=== PATIENT | male | born 1965 | race Caucasian/White ===

== ENCOUNTER → 2020-09-05 09:13 | Outpatient (CLI) | payer OTHER | END | disposition home or self-care (01) | LOC: D.HCCARDIO 09:13 | PROVIDERS: ATTEND Internal Medicine Cardiovascular Disease | DX: I25.10 Atherosclerotic heart disease of native coronary artery without angina pectoris (principal) ==

== ENCOUNTER 2020-10-06 06:59 | Day surgery (SDC) | payer OTHER ==
[~2020-10-06] VITALS: Ht 180.3 cm; Wt 132.8 kg
--- NOTE | ~2020-10-06 | HEMODYNAMI ---
PATIENT:DIANELYS GUALLPA MEDICAL RECORD: [id number] : 65 LOCATION:[facility] ADMISSION DATE: 10/06/20 Generatedon:110:43 Patient name: DIANELYS GUALLPA Patient #: [id number] SSN: DO B: 1965 Date of study: 10/06/2020 Page: Of Hemodynamic Procedure Report Patient Data Patient Demographics Procedure consent was obtained First Name: DIANELYS Gender: Male Last Name: RAMU : 1965 Patient #: [id number] Age: 55 year(s) Race: Unknown Additional ID: [id number] Contact details Address: [address] [place] [address] State: [place] City: [facility] Zip code: [address] Past Medical History Performed procedures and imaging results Date Procedure Procedure Results Comments Stress testing Positive->Intermediate with SPECT MPI risk Allergies Allergen Reaction Date Comments Reported Other allergy 10/06/2020 PCN,STATINS Admission Admission Data Admission Date: 10/06/2020 Admission Time: 6:59 Arrival Date: 10/06/2020 Arrival Time: 0:00 Height (in.): 70.87 BSA: 2.48 (m2) Height (cm.): 180 BMI: 41.05 (kg/m2) Weight (lbs.): 293.22 Weight (kg.): 133 Lab Results Lab Result Date: 10/06/2020 Lab Result Time: 0:00 Biochemistry Name Units Result Min Max BUN mg/dl 25 --(----)-* 7 18 Creatinine mg/dl 1 --(--*-)-- 0.6 1.3 eGFR ml/min 82.46043 *-(----)-- 90 120 NONAFRICAN CBC Name Units Result Min Max Hematocrit % 41 -*(----)-- 42 54 Hemoglobin g/dl 13.7 --(*---)-- 13.5 17.5 Procedure Procedure Types Cath Procedure Diagnostic Procedure [facility] w/Coronaries w/Grafts Sedation Charges Moderate Sedation 40-54 minutes Peripheral Cath Diagnostic Procedure Water Meter Reader Peripheral Procedures Abd/Extremity Aortagram Extremities Bilat Lower Extremity Procedure Description Procedure Date Procedure Date: 10/06/2020 Procedure Start Time: 10:02 Procedure End Time: 10:38 Procedure Staff Name Function Haroon Johns MD Performing Physician Blanca Cevallos RT Monitor Cony Peter RT Scrub Charito Stanley RN Nurse Darwin Moran RN Screen Printer Procedure Data Cath Procedure Fluoroscopy Diagnostic fluoroscopy Total fluoroscopy Time: 6.9 time: 6.9 min min Diagnostic fluoroscopy Total fluoroscopy dose: dose: 1866 mGy 1866 mGy Contrast Material Contrast Material Type Amount (ml) Isovue 300 212 Entry Location Entry Primary Successful Side Size Upsize Upsize Entry Closure Succes sful Closure Location (Fr) 1 (Fr) 2 (Fr) Remarks Device Remarks Femoral Right 5 Fr Exoseal artery Estimated blood loss: 10 ml Diagnostic catheters Device Type Used For End Catheter Placement MULTIPACK JL 4.0 5Fr Procedure catheter MULTIPACK 3DRC 5Fr Procedure catheter DIAGNOSTIC AR MOD 5Fr Procedure Catheter ([id number]) DIAGNOSTIC AR2 MOD 5 Fr Procedure catheter ([id number]) DIAGNOSTIC IM 5Fr Procedure catheter ([id number]) DIAGNOSTIC AR2 MOD 5 Fr Procedure catheter ([id number]) MULTIPACK Pigtail 5 Fr LV Angiography catheter Procedure Complications No complications Procedure Medications Medication Administration Route Dosage Oxygen etCO2 Nasal cannula 2 l/min Lidocaine 2% added to field 20 Heparin Flush Bag added to field 2 bags (1000units/500ml NS) 0.9% NaCl I.V. 100 ml/hr Versed I.V. 1 mg Versed I.V. 1 mg Fentanyl I.V. 50 mcg Fentanyl I.V. 50 mcg Versed I.V. 1 mg Fentanyl I.V. 50 mcg Versed I.V. 1 mg Fentanyl I.V. 50 mcg Versed I.V. 0.5 mg Versed I.V. 1 mg Versed I.V. 0.5 mg Hemodynamics Rest BSA: 2.48 (m2) HGB: 13.7 (g/dl) O2 Consumption: Estimated: 293.15 (ml/min) O2 Co nsumption indexed: Estimated:118.21 (ml/min/m) Heart Rate: 69 (bpm) Pressure Samples Time Site Value (mmHg) Purpose Heart Use Rate(bpm) 10:26 LV 124/2,19 Snapshot 73 10:27 AO 127/74(97) Pullback 68 10:27 LV 124/5,21 Pullback 68 Gradients Valve Time Site 1 Site 2 Mean SEP/DFP Peak To Heart Use (mmHg) (sec/min) Peak Rate (mmHg) (bpm) Aortic 10:27 LV AO 0 14 0 68 124/5,21 127/74(97) Calculations Valve P-P Mean Valve Index Valve Source Name Gradient Area Flow (cm2) Aortic 0 0 0 0 Snapshots Pre Cath Intra NCS Post Cath Vital Signs Time Heart Resp SPO2 etCO2 NIBP (mmHg) Rhythm Pain Sedation Rate (ipm) (%) (mmHg) Status Level (bpm) 9:28:47 67 20 97 0 124/77(98) NSR 0 (11) 10(A) , No pain 9:34:03 76 11 98 28.2 125/82(92) NSR 0 (11) 10(A) , No pain 9:38:21 70 15 100 23 115/77(97) NSR 0 (11) 10(A) , No pain 9:42:37 59 23 100 31.2 123/65(96) NSR 0 (11) 10(A) , No pain 9:46:47 73 22 98 17.8 117/75(96) NSR 0 (11) 10(A) , No pain 9:51:01 70 17 98 11.1 127/77(99) NSR 0 (11) 10(A) , No pain 9:55:14 77 13 98 28.2 128/83(96) NSR 0 (11) 9(A) , No pain 9:59:28 70 14 98 32 124/77(91) NSR 0 (11) 10(A) , No pain 10:03:38 74 13 95 0 122/84(105) NSR 0 (11) 10(A) , No pain 10:07:52 74 12 98 40.9 127/76(101) NSR 0 (11) 10(A) , No pain 10:12:02 77 18 95 29.7 122/89(105) NSR 0 (11) 10(A) , No pain 10:16:14 71 12 99 40.9 126/84(96) NSR 0 (11) 10(A) , No pain 10:20:30 77 17 99 37.9 132/81(100) NSR 0 (11) 10(A) , No pain 10:24:44 66 15 99 39.4 129/82(96) NSR 0 (11) 10(A) , No pain 10:29:00 74 16 100 38.7 123/82(94) NSR 0 (11) 10(A) , No pain 10:33:12 70 20 100 37.2 131/88(102) NSR 0 (11) 10(A) , No pain 10:37:26 76 21 100 29.7 135/89(109) NSR 0 (11) 10(A) , No pain Medications Time Medication Route Dose Verified Delivered Reason Notes Eff ectiveness by by 9:31:49 Oxygen etCO2 2 Haroon Buffie used for Nasal l/min Andreas Stanley RN procedure cannula 9:31:58 Lidocaine 2% added 20ml Haroon Haroon for local to vial nAdreas Johns MD anesthetic field 9:32:04 Heparin Flush added 2 Haroon Haroon used for Bag to bags Andreas Johns MD procedure (1000units/500ml field NS) 9:32:13 0.9% NaCl I.V. 100 Haroon Buffie Per ml/hr Andreas Stanley RN physician 9:45:30 Versed I.V. 1 mg Haroon Buffie for Andreas Stanley RN sedation 9:45:37 Fentanyl I.V. 50 Haroon Buffie for mcg Andreas Stanley RN sedation 9:48:31 Versed I.V. 1 mg Haroon Buffie for Andreas Stanley RN sedation 9:48:38 Fentanyl I.V. 50 Haroon Buffie for mcg Andreas Stanley RN sedation 9:54:36 Versed I.V. 1 mg Haroon Buffie for Andreas Stanley RN sedation 9:54:39 Fentanyl I.V. 50 Haroon Buffie for mcg Andreas Stanley RN sedation 9:59:03 Versed I.V. 1 mg Haroon Buffie for Andreas Stanley RN sedation 9:59:08 Fentanyl I.V. 50 Haroon Buffie for mcg Andreas Stanley RN sedation 10:04:39 Versed I.V. 0.5 Haroon Buffie for mg Andreas Stanley RN sedation 10:27:13 Versed I.V. 1 mg Haroon Granados for Andreas Moran sedation RN 10:30:27 Versed I.V. 0.5 Haroon Darwin for mg Andreas Moran sedation director trial Log Time Note 9:05:43 Informed consent obtained and on chart 9:06:20 Procedure Status Elective Heart Cath (OP), Peripheral. 9:06:23 Time tracking: Regular hours (M-F 7:00 - 5:00) 9:06:25 Plan of Care:Hemodynamics will remain stable., Cardiac rhythm will remain stable., Comfort level will be maintained., Respiratory function will remain adequate., Patient/ family verbilizes understanding of procedure., Procedure tolerated without complication., Recovers from procedure without complications.. 9:06:33 H&P Date Dictated: 09/28/2020 Within 30 days and on chart., H&P Addendum completed by physician on day of procedure. (MUST COMPLETE FOR ALL OUTPATIENTS). 9:06:58 Charito Stanley RN sent for patient. Start room use. 9:18:17 Patient allergic to Other allergyPCN,STATINS 9:18:44 Lab Result : BUN 25 mg/dl 9:18:44 Lab Result : Creatinine 1 mg/dl 9:18:44 Lab Result : eGFR NONAFRICAN 82.30748 ml/min 9:18:44 Lab Result : Hemoglobin 13.7 g/dl 9:18:44 Lab Result : Hematocrit 41 % 9:19:36 Patient Weight : 293.22 lbs 9:19:40 Patient Height : 70.87 inches 9:19:44 Arrival Date: 10/06/2020 12:00:00 AM 9:25:49 Lab results completed and on chart. 9:27:02 Stress Test: yes; abnormal ANTERIOR, APICAL, INFERIOR 9:27:18 Bilateral groins area was prepped with chlora-prep and draped in sterile fashion 9:27:19 Alarms reviewed by R. N. 9:27:20 Sharps counted by scrub and verified by R.N. 9:27:23 Physician paged 9:27:33 Patient received from Pre/Post Procedure Room to CCL 1 Alert and oriented. Tansferred to table in Supine position. 9:27:38 Warm blankets applied, and lake hugger turned on for patient comfort. 9:27:38 Correct patient and procedure confirmed by team. 9::39 ECG and BP/O2 sat monitors applied to patient. 9::39 Vital chart was started 9:27:41 Baseline sample Acquired. 9:27:46 Rhythm: sinus rhythm 9:27:47 Full Disclosure recording started 9:27:53 Family in patients room. 9:27:57 Patient NPO since Midnight. 9:28:01 Is the patient allergic to Iodine/contrast media? No. 9:28:03 Was the patient premedicated? Yes 9:28:05 Is patient on blood thinner?Yes 9:28:09 ACC The patient was administered the following blood thiners within the last 24 hours: ACCAspirin 9:28:15 Patient diabetic? No. 9:28:19 Snore? No 9:28:20 Sleep apnea? Yes 9:28:31 Dentures? No ? 9:29:43 Patient pain scale 0/10 ?. 9:29:50 IV patent on arrival in left forearm with 0.9% NaCl at [facility]. 9:31:49 Oxygen 2 l/min etCO2 Nasal cannula was administered by Charito Stanley RN; used for procedure; Verbal order read back and verified. 9:31:58 Lidocaine 2% 20ml vial added to field was administered by Haroon Johns MD; for local anesthetic; Verbal order read back and verified. 9:32:04 Heparin Flush Bag (1000units/500ml NS) 2 bags added to field was administered by Haroon Johns MD; used for procedure; Verbal order read back and verified. 9:32:13 0.9% NaCl 100 ml/hr I.V. was administered by Charito Stanley RN; Per physician; Verbal order read back and verified. 9:35:08 Baseline sample Acquired. 9:35:27 Use device set Femoral Dx 9:35:29 ACIST Syringe (62812) opened to sterile field. 9:35:29 Bag Decanter () opened to sterile field. 9:35:30 ACIST Hand Control (76347) opened to sterile field. 9:35:31 ACIST Manifold (32417) opened to sterile field. 9:35:31 Tegaderm 4 x 4 (1626W) opened to sterile field. 9:35:33 Medline Cath Pack ([id number]) opened to sterile field. 9:35:34 DIAGNOSTIC Multipack 5Fr catheter set ([id number]) opened to sterile field. 9:35:35 SHEATH 5FR [place] (TIL059) opened to sterile field. 9:35:37 EMERALD Guide Wire (854-086) opened to sterile field. 9:44:26 Physician responded to page. :44: Physician arrived 9:44:27 --------ALL STOP TIME OUT------ 9:44:28 Final Timeout: patient, procedure, and site verified with staff and physician. All members of the team are in agreement. 9:44:31 Bilateral groins site verified by team. 9:44:36 Fire Safety Assessment: A--An alcohol-based skin anteseptic being used preoperatively., C--Open oxygen or nitrous oxide is being used., D--An ESU, laser, or fiber-optic light is being used. 9:44:40 Physical assessment completed. ASA score P 3 - A patient with severe systemic disease as per Haroon Johns MD. 9:44:44 2) 60-89 Mildly reduced kidney function, and other findings (as for stage 1) point to kidney disease. 9:44:48 Maximum allowable contrast dose (3.7 X eGFR X 0.75)228 ml. 9:44:52 Sedation plan: IV Moderate Sedation Medication:Versed, Fentanyl 9:45:30 Versed 1 mg I.V. was administered by Charito Stanley RN; for sedation; Verbal order read back and verified. 9:45:37 Fentanyl 50 mcg I.V. was administered by Charito Stanley RN; for sedation; Verbal order read back and verified. 9:48:31 Versed 1 mg I.V. was administered by Charito Stanley RN; for sedation; Verbal order read back and verified. 9:48:38 Fentanyl 50 mcg I.V. was administered by Charito Stanley RN; for sedation; Verbal order read back and verified. 9:50:45 Zero performed for pressure channel P1 9:54:36 Versed 1 mg I.V. was administered by Charito Stanley RN; for sedation; Verbal order read back and verified. 9:54:39 Fentanyl 50 mcg I.V. was administered by Charito Stanley RN; for sedation; Verbal order read back and verified. 9:56:43 Procedure started. 9:59:03 Versed 1 mg I.V. was administered by Charito Stanley RN; for sedation; Verbal order read back and verified. 9:59:08 Fentanyl 50 mcg I.V. was administered by Charito Stanley RN; for sedation; Verbal order read back and verified. 10:02:59 Local anesthetic to right femoral artery with Lidocaine 2% by Haroon Johns MD.INITIAL ACCESS ONLY 10:04:39 Versed 0.5 mg I.V. was administered by Charito Stanley RN; for sedation; Verbal order read back and verified. 10:04:57 A 5 Fr sheath was inserted into the Right Femoral artery 10:07:17 A MULTIPACK JL 4.0 5Fr catheter was advanced over the wire and used for Procedure. 10:08:38 LCA angiography performed. 10:09:56 Catheter removed. 10:11:07 A MULTIPACK 3DRC 5Fr catheter was advanced over the wire and used for Procedure. 10:11:11 RCA angiography performed. 10:12:45 Catheter removed. 10:13:36 A DIAGNOSTIC AR MOD 5Fr Catheter ([id number]) was advanced over the wire and used for Procedure.NO GRAPHS CANNULATED WITH CATH 10:13:40 Catheter removed. 10:14:45 A DIAGNOSTIC AR2 MOD 5 Fr catheter ([id number]) was advanced over the wire and used for Procedure. 10:15:01 SVG to RCA angiography performed. 10:15:44 SVG to Circ angiography performed. 10:19:24 Catheter removed. 10:22:23 A DIAGNOSTIC IM 5Fr catheter ([id number]) was advanced over the wire and used for Procedure. 10:23:04 LYON angiography performed. 10:25:43 A DIAGNOSTIC AR2 MOD 5 Fr catheter ([id number]) was advanced over the wire and used for Procedure. 10:25:45 Catheter removed. 10:25:57 A MULTIPACK Pigtail 5 Fr catheter was advanced over the wire and used for LV Angiography. 10:26:04 LV gram done using ZULUAGA 10:27:04 EF : 30 % 10:27:13 Versed 1 mg I.V. was administered by Darwin Moran RN; for sedation; Verbal order read back and verified. 10:27:30 Abdominal angiogram w/ runoff was performed. 10:28:13 Left leg runoff performed. 10:28:46 Right leg runoff performed. 10:30:27 Versed 0.5 mg I.V. was administered by Darwin Moran RN; for sedation; Verbal order read back and verified. 10:32:11 Procedure type changed to Cath procedure, Diagnostic procedure, LHC, LHC w/Coronaries w/Grafts, Sedation Charges, Moderate Sedation 40-54 minutes, Peripheral Cath Diagnostic Procedure, Water Meter Reader Peripheral Procedures, Abd/Extremity, Aortagram, Extremities, Bilat Lower Extremity 10:32:37 Catheter removed. 10:32:50 EXOSEAL 5Fr (EX500) opened to sterile field. 10:36:26 Sheath removed intact; hemostasis achieved with Exoseal to the Right Femoral artery. 10:36:41 Procedure ended.(Physican Out) 10:36:47 Fluoroscopy time 06.90 minutes. 10:36:54 Fluoroscopy dose: 1866 mGy 10:36:54 Flurop Dose total: 1866 10:37:01 Dose Area Product 352638 mGy/cm. 10:37:15 Contrast amount:Isovue 300 212ml. 10:37:18 Maximum allowable dose exceeded? No. 10:37:20 Sharps counted by scrub and verified by R.N. 10:37:21 Insertion/operative site no bleeding no hematoma. 10:37:33 Post right femoral artery:stable 10:37:48 Post-procedure physical assessment completed. ASA score P 2 - A patient with mild systemic disease as per Haroon Johns MD. 10:37:52 Post procedure rhythm: unchanged. 10:37:55 Estimated blood loss: 10 ml 10:37:57 Post procedure instruction explained to patient.Patient verbalizes understanding. 10:38:16 Procedure Complication : No complications 10:38:18 Vital chart was stopped 10:38:23 [facility] Findings: MVD- will discuss options w/ pt 10:38:27 See physician's report for complete and final results. 10:38:29 Report given to Pre/Post Procedure Room. 10:38:32 Patient transfered to Pre/Post Procedure Room with Stretcher. 10:38:35 Procedure ended. 10:38:35 Full Disclosure recording stopped 10:38:39 End room use (Document Last) 10:41:48 Procedure and supply charges have been captured, reviewed, submitted and are correct. 10:42:19 Procedure and supply charges have been captured, reviewed, submitted and are correct. 10:42:54 Procedure and supply charges have been captured, reviewed, submitted and are correct. Device Usage Item Name Manufacture Quantity Catalog Hospital Part Current Minimal L ot# / Number Charge Number Stock Stock Serial# Code ACIST Acist 1 93899 397231 331538 117022 20 Syringe Medical (15458) Systems Inc Bag Microtek 1 959621 02393 221039 5 Decanter Medical Inc. () ACIST Hand Acist 1 45099 402812 329902 802300 5 Control Medical (35134) Systems Inc ACIST Acist 1 78008 822476 084638 352345 5 Manifold Medical (17063) Systems Inc Tegaderm 4 3M 1 1626W 715058 613375 740728 5 x 4 (1626W) Medline Medline 1 [id number] 114024 35259 563047 5 Cath Pack ([id number]) DIAGNOSTIC Cardinal 1 AQ3764 407930 98950 810879 30 Multipack Health 5Fr catheter set ([id number]) SHEATH 5FR Terumo 1 OUN195 162319 761569 896853 5 [place] (EUU348) EMERALD Cardinal 1 502-455 984931 125507 222203 5 Guide Wire Health (502-455) MULTIPACK Cardinal 1 846318 5 JL 4.0 5Fr Health catheter MULTIPACK Cardinal 1 630155 5 3DRC 5Fr Health catheter DIAGNOSTIC Cardinal 1 [id number] 359848 998187 311858 15 AR MOD 5Fr Health Catheter (966547O) DIAGNOSTIC Cardinal 1 [id number] 661689 513062 092382 20 AR2 MOD 5 Health Fr catheter (740501A) DIAGNOSTIC Cardinal 1 [id number] 345587 282323 810334 5 IM 5Fr Health catheter (802025U) MULTIPACK Cardinal 1 402818 5 Pigtail 5 Health Fr catheter EXOSEAL 5Fr Cardinal 1 EX500 971829 532853 [id number] 10 (EX500) Health Signature Audit [place] Stage Time Signature Unsigned Intra-Procedure 10/06/2020 Charito Stanley RN 10:42:19 AM Intra-Procedure 10/06/2020 Blanca Cevallos 10:42:54 AM RT(R) Intra-Procedure 10/06/2020 Haroon Johns MD 10:43:19 AM [facility] [address] [place] [address]
[2020-10-06] MEDS ORDERED: COREG 3.1253.125 MG PO (07:57)
[2020-10-06] MEDS ORDERED: CLONIDINE HCL0.2 MG PO (07:57)
[2020-10-06] MEDS ORDERED: LOSARTAN-HCTZ1 EAC1 PO (07:57)
[2020-10-06] MEDS ORDERED: NIASPAN1000 MG PO (07:58)
[2020-10-06] MEDS ORDERED: INDOCIN-SR75 MG PO (07:58)
[2020-10-06] MEDS ORDERED: BAYER ASPIRIN325 MG PO (07:59)
[2020-10-06 08:03] VITALS: BP 152/86; Ht 180.3 cm; Wt 132.8 kg
[2020-10-06 08:20] LABS: BASOPHILS 0.2 % (0-2); EOSINOPHILS 2.5 % (0-7); HEMOGLOBIN 13.7 g/dL (13.5-17.5); IMMATURE GRANULOCYTES 0.2 % (0-5); LYMPHOCYTE ABS# 0.96 10x3/uL (1.32-3.57); LYMPHOCYTES 16.2 % (15-50); MCH 27.5 pg (26.0-34.0); MCHC 33.4 g/dL (31.0-37.0); MCV 82.2 fL (80.0-100.0); MEAN PLATELET VOLUME 9.3 fL (7.4-10.4); MONOCYTES 10.8 % (2-11); NEUTROPHIL ABS# 4.17 10x3/uL (1.78-5.38); NEUTROPHILS 70.1 % (40-80); PLATELET COUNT 165 10x3/uL (130-400); RBC 4.99 10x6/uL (4.20-6.10); RDW 14.7 % (11.5-14.5); WBC 5.9 10x3/uL (4.8-10.8)
[2020-10-06 08:33] LABS: ALT (SGPT) 32 U/L (10-68); CALC OSMOLALITY 284 mosm/kg (275-300); CALCIUM 9.6 mg/dL (8.5-10.1); CARBON DIOXIDE 27.7 mmol/L (21.0-32.0); CHLORIDE - SERUM 104 mmol/L (98-107); CHOL - HDL RATIO 7.5 ratio (2.3-4.9); CHOLESTEROL, TOTAL 216 mg/dL (0-200); GLUCOSE 137 mg/dL (74-106); HDL CHOLESTEROL 29 mg/dL (32-96); LDL CHOLESTEROL 110 mg/dL (0-100); LDL-HDL RATIO 3.8 ratio (1.5-3.5); POTASSIUM - SERUM 4.3 mmol/L (3.5-5.1); SODIUM 140 mmol/L (136-145); TRIGLYCERIDE 389 mg/dL (30-200); UREA NITROGEN 25 mg/dL (7-18); eGFR NON AFRICAN AMERICAN 82 mL/min (90-120)
--- NOTE | 2020-10-06 10:55 | NUR ---
PT TO ROOM 7 VIA STRETCHER S/P HEART CATH AND AFRO. SEE RN IN ASSESSMENT. CALL LIGHT WITHIN REACH, PT AND SPOUSE UP DATED ON PLAN OF CARE AND TIME FRAME , TO LAY FLAT WITH HEAD ON PILLOW , PT VERBALIZED UNDERSTANDING, DENIES PAIN OR NEEDS AT PRESENT
--- NOTE | 2020-10-06 11:25 | NUR ---
DR AMIN AT BEDSIDE TO SPEAK TO PT AND SPOUSE. PT IS AAOX3, VSS, NSR WITH NO ECTOPY, RIGHT GROIN SOFT WITH NO BLEEDING OR OOZING, NO PALPABLE HEMATOMA,EXTREMITY WARM AND DRY, POST TIB PULSE PALPABLE, PT DENIES PAIN AND NEEDS, IV INFUSING PER ORDERS, CALL LIGHT WITHIN REACH,
--- NOTE | 2020-10-06 11:40 | NUR ---
PT RESTING QUIETLY, VISITING WITH SPOUSE AT BEDSIDE, PT REMAINS SUPINE WTIH HEAD ON PILLOW REQUIRES OCCASIONAL REMINDING, VSS, NSR, RIGHT GROIN SOFT WITH NO BLEEDING OR OOZING, NO PALPABLE HEMATOMA, EXTREMITY WARM AND DRY, PT DENIES PAIN OR NEEDS, IV INFUSING PER ORDERS, PT UPDATED ON PLAN OF CARE, CALL LIGHT WITHIN REACH
--- NOTE | 2020-10-06 11:55 | NUR ---
PT RESTING QUIETLY, DENIES PAIN OR NEEDS, VSS, SR, RIGHT GROIN SOFT WITH OPSITE C/D/I INPLACE , NO PALPABLE HEMATOMA, EXTREMITY WARM AND DRY, POST TIB PULSE PALPABLE, MOVES FEET, IV INFUSING PER ORDERS, DENIES BATHROOM NEEDS, SIPS OF PO FLUIDS OFFERED, TIME FRAME GIVEN ON WHEN PT MAY SIT UP, CALL LIGHT WITHIN REACH.
--- NOTE | 2020-10-06 12:25 | NUR ---
PT RESTING QUIETLY AAOX3, PT IS PLACED IN SEMI FOWLERS POSITION AT THIS TIME, VSS, NSR , RIGHT GROIN SOFT WITH NO OOZING OR BLEEDING, OPSITE C/D/I, EXTREMITY WARM AND POST TIBIAL PULSE PALPABLE, PT DENIES PAIN OR NEEDS, IV INFUSING PER ORDERS, PT GIVEN PO FLUIDS AND SANDWICH, CALL LIGHT WITH IN REACH.
--- NOTE | 2020-10-06 12:55 | NUR ---
PT SEMI FOWLERS POSITION, VSS, NSR WITH OCCASIONAL PVC, RIGHT GROIN STABLE WITH OUT BLEEDING OR OOZING , OPSITE C/D/I, EXTREMITY WARM AND POST TIBIAL PULSE PALPABLE, IV INFUSING PER ORDERS, DENIES PAIN OR NEEDS, PT CONSUMED 100% SANDWHICH DENIES NAUSEA OR VOMTING. DISCHARGE TEACHING STARTED. CALL LIGHT WITHIN REACH
--- NOTE | 2020-10-06 13:15 | NUR ---
22G IV REMOVED AND INTACT FROM LEFT AC 2X2 PLACED , PT UP TO DRESS WITH ASSISTANCE FROM SPOUSE , PT AMBULATES DOWN HALLWAY TO BATHROOM VOIDS WITHOUT DIFFICULTY, RIGHT GROIN SOFT WITH OUT OOZING OR BLEEDING, POSTERIOR ITBIAL PULSE PALPABLE, EXTREMITY WARM, PT DENIES PAIN OR NEEDS, DISCHARGE TEACHING COMPLETED, PT AND SPOUSE VERBALIZED UNDERSTANDING
--- NOTE | 2020-10-06 13:30 | NUR ---
PT DISCHARGED TO PRIVATE VEHICLE VIA WHEELCHAIR, PT HAS NO PAIN OR NEEDS AT THIS TIME.
== END 2020-10-06 13:30 | disposition home or self-care (01) ==
LOC: D.CATH 06:59
PROVIDERS: ATTEND Internal Medicine Cardiovascular Disease
DX: I25.110 Atherosclerotic heart disease of native coronary artery with unstable angina pectoris (principal); R94.39 Abnormal result of other cardiovascular function study; I73.9 Peripheral vascular disease, unspecified; R06.02 Shortness of breath